=== PATIENT | female | born 1980 | race Two or more races ===

== ENCOUNTER 2019-04-06 21:36 | Inpatient (IN) | payer OTHER ==
[~2019-04-06] VITALS: Ht 175.3 cm; Wt 52.6 kg
== END 2019-04-08 16:24 | disposition left against medical advice (07) | DRG 866 ==
LOC: ER 21:36 → MEDI 04-07 13:53 → SEC-K 04-07 13:53 → MEDJ 04-07 16:32 → MEDI 04-07 16:32
PROVIDERS: ADMIT Internal Medicine
PROC: BW40ZZZ Ultrasonography of Abdomen (ICD-10-PCS; principal; 2019-04-08)
DX: A90 Dengue fever [classical dengue] (principal); K81.0 Acute cholecystitis; J90 Pleural effusion, not elsewhere classified; K29.00 Acute gastritis without bleeding; D69.59 Other secondary thrombocytopenia; R74.8 Abnormal levels of other serum enzymes